=== PATIENT | female | born 1985 | race African-American/Black ===

== ENCOUNTER → 2023-09-16 | Outpatient (CLI) | payer OTHER ==
[2023-09-17 07:07] LABS: Mumps IgG Antibody >300.0 AU/mL (Immune >10.9); Varicella Zoster IgG Antibody 2298 index (Immune >165)
== END | disposition home or self-care (01) ==
LOC: LAB 14:04
PROVIDERS: ATTEND Nurse Practitioner
DX: Z01.84 Encounter for antibody response examination (principal)
CPT/HCPCS: 36415; 86706; 86735; 86762; 86765; 86787